=== PATIENT | male | born 1975 | race Caucasian/White ===

== ENCOUNTER 2017-07-28 19:51 | Emergency (ER) | payer OTHER ==
[2017-07-28] MEDS ORDERED: Albuterol/Ipratropium 3.0-0.5 MG/3 ML Neb Soln NEB ONE (20:21)
--- NOTE | 2017-07-28 20:21 | EDM.PDOC ---
ED HPI GENERAL MEDICAL PROBLEM - General Chief Complaint: Respiratory Problem Stated Complaint: short of breath for 1 month Time Seen by Provider: 07/28/17 20:00 Source of Information: Reports: Patient History Limitations: Reports: No Limitations - History of Present Illness INITIAL COMMENTS - FREE TEXT/NARRATIVE: patient comes in tonight with an onset of shortness of breath with exertion and coughing up a large amount of green thick sputum for the past and 3 weeks. Over the last week it has increased in intensity. The patient is unable to lie flat do to coughing up green phlegm, sweats, chills, muscle/body aches. Onset: Gradual Severity: Moderate Improves with: Reports: None Worsens with: Reports: Breathing Associated Symptoms: Reports: Cough, Fever/Chills, Nausea/Vomiting, Shortness of Breath - Related Data Allergies Allergy/AdvReac Type Severity Reaction Status Date / Time No Known Allergies Allergy Verified 07/28/17 19:54 Home Meds: Home Meds Azithromycin [IMW: Azithromycin] 500 mg PO DAILY 7 Days #7 tab 07/28/17 [Rx] Naproxen Sodium [Aleve] 2 tab PO DAILY 07/28/17 [History] Omeprazole 20 mg PO DAILY 07/28/17 [History] Past Medical History HEENT History: Reports: Impaired Vision Cardiovascular History: Reports: SOB on Exertion Gastrointestinal History: Reports: GERD Social & Family History - Tobacco Use Smoking Status *Q: Current Every Day Smoker Years of Tobacco use: 20 Packs/Tins Daily: 0.5 ED ROS GENERAL - Review of Systems Review Of Systems: See Below Constitutional: Reports: Fever, Chills, Malaise, Fatigue, Night Sweats HEENT: Reports: No Symptoms Respiratory: Reports: Shortness of Breath, Wheezing, Pleuritic Chest Pain, Cough , Sputum Cardiovascular: Reports: Dyspnea on Exertion. Denies: Chest Pain, Blood Pressure Problem, Claudication, Edema, Orthopnea, Syncope Endocrine: Reports: No Symptoms GI/Abdominal: Reports: No Symptoms : Reports: No Symptoms Musculoskeletal: Reports: No Symptoms Skin: Reports: No Symptoms Neurological: Reports: No Symptoms Psychiatric: Reports: No Symptoms Hematologic/Lymphatic: Reports: No Symptoms Immunologic: Reports: No Symptoms ED EXAM, GENERAL - Physical Exam Exam: See Below Exam Limited By: No Limitations General Appearance: Alert, WD/WN, No Apparent Distress Head: Atraumatic, Normocephalic Neck: Normal Inspection Respiratory/Chest: Decreased Breath Sounds, Wheezing Cardiovascular: Normal Peripheral Pulses, Regular Rate, Rhythm Back Exam: Normal Inspection, Full Range of Motion Extremities: Normal Inspection, Normal Range of Motion, Non-Tender, Normal Capillary Refill Neurological: Alert, Oriented, CN II-XII Intact, Normal Cognition Skin Exam: Warm, Dry, Intact, Normal Color, No Rash Course - Vital Signs Last Recorded V/S: Last Vital Signs Temp 37.1 C 07/28/17 19:55 Pulse 97 07/28/17 19:55 Resp 22 H 07/28/17 19:55 BP 144/78 H 07/28/17 19:55 Pulse Ox 97 07/28/17 19:55 - Orders/Labs/Meds Orders: Active Orders 24 hr Category Date Time Status Chest 2V [CR] Stat Exams 07/28/17 20:07 Ordered Departure - Departure Time of Disposition: 20:40 Disposition: Home, Self-Care 01 Condition: Good Clinical Impression: Pneumonia Qualifiers: Pneumonia type: due to unspecified organism Laterality: right Lung location: lower lobe of lung Qualified Code(s): J18.1 - Lobar pneumonia, unspecified organism - Discharge Information Instructions: Shortness of Breath, [id number], Community-Acquired Pneumonia, Adult, [id number] - My Orders Last 24 Hours: My Active Orders 07/28/17 20:07 Chest 2V [CR] Stat - Assessment/Plan Last 24 Hours: My Active Orders 07/28/17 20:07 Chest 2V [CR] Stat
[2017-07-28] MEDS ORDERED: cefTRIAXone 1 GM Vial IM ONE (20:23)
[2017-07-28 20:52] LABS: CHLORIDE,CL 105 mmol/L (98-107); SODIUM,NA 142 mmol/L (136-145)
== END 2017-07-28 20:53 | disposition home or self-care (01) ==
LOC: VM.ED 19:51
DX: J18.9 Pneumonia, unspecified organism (principal); F17.210 Nicotine dependence, cigarettes, uncomplicated; Z79.899 Other long term (current) drug therapy
CPT/HCPCS: 36415; 71020; 80053; 85027; 94640; 99285; J0696; 96372; 99283-GF

== ENCOUNTER 2017-11-06 11:27 | Observation (INO) | payer OTHER ==
--- NOTE | 2017-11-06 11:37 | EDM.PDOC ---
ED HPI GENERAL MEDICAL PROBLEM - General Chief Complaint: Chest Pain Stated Complaint: SOB; Chest Pain Time Seen by Provider: 11/06/17 11:35 Source of Information: Reports: Patient, RN, RN Notes Reviewed History Limitations: Reports: No Limitations - History of Present Illness INITIAL COMMENTS - FREE TEXT/NARRATIVE: Patient presents the emergency room at [facility] complaining of left substernal chest pain radiating down the left arm. The patient states that his left arm feels very tingly. The patient states that his symptoms began about one half hour prior to presentation to the emergency room. The patient denies any cardiac history. The patient denies any nausea vomiting or diarrhea. The patient denies any back pain. The patient denies any dizziness or headache. The patient denies any focal neurological deficit. The patient does feel short of breath. The patient states that he quit smoking about 3 weeks ago. The patient also has an anxiety component secondary to his chest pain. The patient states he has not had these symptoms in the past. The patient denies any recent cold or flu symptoms. Otherwise no other concerns. Onset: Today, Sudden Onset Date: 11/06/17 Onset Time: 11:00 Duration: Constant, Getting Worse Location: Reports: Chest Quality: Reports: Sharp, Stabbing Severity: Moderate Improves with: Reports: None Worsens with: Reports: None Context: Denies: Activity, Lifting, Trauma Associated Symptoms: Reports: Shortness of Breath Treatments LEGAL FILE CLERK: Reports: Other (see below) (none) Left Chest Pain Score (Numeric/FACES): 4 - Related Data Allergies Allergy/AdvReac Type Severity Reaction Status Date / Time onion Allergy Swelling Verified 11/06/17 12:02 Home Meds: Home Meds Naproxen Sodium [Aleve] 2 tab PO DAILY 07/28/17 [History] Omeprazole 20 mg PO BID 07/28/17 [History] Meloxicam [Meloxicam] 15 mg DAILY 11/06/17 [History] Past Medical History HEENT History: Reports: Impaired Vision Cardiovascular History: Reports: SOB on Exertion Gastrointestinal History: Reports: GERD Social & Family History - Tobacco Use Smoking Status *Q: Current Every Day Smoker Years of Tobacco use: 20 Packs/Tins Daily: 0.5 ED ROS GENERAL - Review of Systems Review Of Systems: See Below Constitutional: Denies: Fever, Chills, Weakness Respiratory: Reports: Shortness of Breath, Cough. Denies: Sputum Cardiovascular: Reports: Chest Pain, Dyspnea on Exertion. Denies: Palpitations GI/Abdominal: Denies: Abdominal Pain, Nausea, Vomiting Musculoskeletal: Reports: No Symptoms Skin: Reports: No Symptoms Neurological: Reports: Tingling (down left arm). Denies: Dizziness, Headache, Numbness, Paresthesia ED EXAM, GENERAL - Physical Exam Exam: See Below Exam Limited By: No Limitations General Appearance: Alert, No Apparent Distress, Obese Respiratory/Chest: Decreased Breath Sounds, Rhonchi, Wheezing (end expiratory) Cardiovascular: Normal Peripheral Pulses, Regular Rate, Rhythm Peripheral Pulses: 2+: Radial (L), Radial (R) GI/Abdominal: Soft, Non-Tender, Abnormal Bowel Sounds (Hypoactive) Back Exam: Normal Inspection Extremities: Normal Inspection Neurological: Alert, Oriented Skin Exam: Warm, Dry, Intact, Normal Color, No Rash EKG INTERPRETATION EKG Date: 11/06/17 Time: 11:35 Rhythm: NSR Rate (Beats/Min): 87 [place]: Normal P-Wave: Present QRS: Normal ST-T: Depressed QT: Normal IL/PQ Interval: 0.17 Comparison: NA - No Prior EKG EKG Interpretation Comments: EKG #1: 1. Sinus Rhythm 2. Moderate ST depression EKG #2: 1. Sinus Rhythm 2. Normal ECG Course - Vital Signs Last Recorded V/S: Last Vital Signs Temp 36.9 C 11/06/17 13:50 Pulse 78 11/06/17 13:50 Resp 28 H 11/06/17 13:50 BP 135/71 11/06/17 13:50 Pulse Ox 97 11/06/17 13:50 - Orders/Labs/Meds Orders: Active Orders 24 hr Category Date Time Status EKG 12 Lead [EKG Documentation Completion] [RC] STAT Care 11/06/17 13:14 Active EKG 12 Lead [EKG Documentation Completion] [RC] STAT Care 11/06/17 13:15 Active Chest 1V Frontal [CR] Stat Exams 11/06/17 11:37 Taken Chest w Cont [CT] Stat Exams 11/06/17 13:00 Taken Sodium Chloride 0.9% [Saline Flush] Med 11/06/17 11:38 Active 10 ml FLUSH ASDIRECTED PRN Peripheral IV Insertion Adult [OM.PC] Routine Oth 11/06/17 11:38 Ordered Medication Orders Sodium Chloride (Saline Flush) 10 ml FLUSH ASDIRECTED PRN PRN Reason: Keep Vein Open Labs: Laboratory Tests 11/06/17 11/06/17 11/06/17 Range/Units 11:54 11:54 11:55 WBC 9.1 (4.0-10.0) x10^3/uL RBC 4.32 L (4.5-6.0) x10^6/uL Hgb 14.6 (14.0-18.0) g/dL Hct 42.1 (40.0-52.0) % MCV 97.5 H (78.0-93.0) fL MCH 33.8 H (26.0-32.0) pg MCHC 34.7 (32.0-36.0) g/dL RDW Coeff of Dinesh 12.0 (10.0-15.0) % Plt Count 144 (130-400) x10^3/uL Neut % (Auto) 59.6 (50.0-80.0) % Lymph % (Auto) 32.2 (25.0-50.0) % [place] % (Auto) 6.8 (2.0-11.0) % Eos % (Auto) 1.1 (0.0-4.0) % Baso % (Auto) 0.3 (0.2-1.2) % PT (9.8-11.8) SEC INR (2.0-3.5) D-Dimer, Quantitative 0.21 (<=0.58) mg/LFEU Sodium 140 (136-145) mmol/L Potassium 4.0 (3.5-5.1) mmol/L Chloride 105 (98-107) mmol/L Carbon Dioxide 22 (21-32) mmol/L BUN 17 (7-18) mg/dL Creatinine 1.0 (0.70-1.30) mg/dL Est Cr Clr Drug Dosing 106.70 mL/min Estimated GFR (MDRD) > 60 Glucose 107 H (74-106) mg/dL Calcium 8.9 (8.5-10.1) mg/dL Corrected Calcium 9.06 (8.5-10.1) mg/dL Magnesium 1.8 (1.8-2.4) mg/dL Total Bilirubin 0.7 (0.2-1.0) mg/dL AST 43 H (15-37) U/L ALT 130 H (16-63) U/L Alkaline Phosphatase 102 (46-116) U/L Creatine Kinase 164 (39-308) U/L Creatine Kinase Index 0.7 (0.0-4.0) % CK-MB (CK-2) 1.2 (0.0-3.6) ng/mL POC Troponin I (0.00-0.08) ng/mL Total Protein 7.4 (6.4-8.2) g/dL Albumin 3.8 (3.4-5.0) g/dL Globulin 3.6 Albumin/Globulin Ratio 1.06 11/06/17 11/06/17 Range/Units 11:55 11:58 WBC (4.0-10.0) x10^3/uL RBC (4.5-6.0) x10^6/uL Hgb (14.0-18.0) g/dL Hct (40.0-52.0) % MCV (78.0-93.0) fL MCH (26.0-32.0) pg MCHC (32.0-36.0) g/dL RDW Coeff of Dinesh (10.0-15.0) % Plt Count (130-400) x10^3/uL Neut % (Auto) (50.0-80.0) % Lymph % (Auto) (25.0-50.0) % [place] % (Auto) (2.0-11.0) % Eos % (Auto) (0.0-4.0) % Baso % (Auto) (0.2-1.2) % PT 9.7 L (9.8-11.8) SEC INR 0.9 L (2.0-3.5) D-Dimer, Quantitative (<=0.58) mg/LFEU Sodium (136-145) mmol/L Potassium (3.5-5.1) mmol/L Chloride (98-107) mmol/L Carbon Dioxide (21-32) mmol/L BUN (7-18) mg/dL Creatinine (0.70-1.30) mg/dL Est Cr Clr Drug Dosing mL/min Estimated GFR (MDRD) Glucose (74-106) mg/dL Calcium (8.5-10.1) mg/dL Corrected Calcium (8.5-10.1) mg/dL Magnesium (1.8-2.4) mg/dL Total Bilirubin (0.2-1.0) mg/dL AST (15-37) U/L ALT (16-63) U/L Alkaline Phosphatase (46-116) U/L Creatine Kinase (39-308) U/L Creatine Kinase Index (0.0-4.0) % CK-MB (CK-2) (0.0-3.6) ng/mL POC Troponin I 0.00 (0.00-0.08) ng/mL Total Protein (6.4-8.2) g/dL Albumin (3.4-5.0) g/dL Globulin Albumin/Globulin Ratio Meds: Medications Generic Name Dose Route Start Last Admin Trade Name Freq PRN Reason Stop Dose Admin Sodium Chloride 10 ml 11/06/17 11:38 Saline Flush FLUSH ASDIRECTED PRN Keep Vein Open Discontinued Medications Generic Name Dose Route Start Last Admin Trade Name Freq PRN Reason Stop Dose Admin Aspirin 324 mg 11/06/17 11:43 11/06/17 11:48 Aspirin PO 11/06/17 11:44 324 mg ONETIME ONE Administration Iopamidol 100 ml 11/06/17 13:05 11/06/17 13:19 Isovue-300 (61%) IVPUSH 11/06/17 13:06 100 ml ONETIME ONE Administration Nitroglycerin 0.4 mg 11/06/17 11:39 11/06/17 11:50 Nitrostat SL 11/06/17 11:40 0.4 mg ONETIME ONE Administration Nitroglycerin 0.4 mg 11/06/17 13:12 11/06/17 12:00 Nitrostat SL 11/06/17 13:13 0.4 mg ONETIME ONE Administration - Radiology Interpretation Free Text/Narrative:: CXR: No acute findings CT Chest w/contrast: No gross evidence of pulmonary embolism. Geographic area of increased density in the left hepatic lobe superimposed on a background of severe steatosis. Consider further evaluation with either hepatic US or MRI See scanned report in EMR CT Results Date: 11/06/17 CT Results Time: 13:45 Departure - Departure Time of Disposition: 13:55 Disposition: Refer to Observation Reason for Transfer *Q: Other Condition: Good Clinical Impression: Chest pain Qualifiers: Chest pain type: unspecified Qualified Code(s): R07.9 - Chest pain, unspecified - Problem List & Annotations (1) Chest pain SNOMED Code(s): 50682414 Code(s): R07.9 - CHEST PAIN, UNSPECIFIED Status: Acute Priority: High Current Visit: Yes Onset Date: ~11/06/17 Qualifiers: Chest pain type: unspecified Qualified Code(s): R07.9 - Chest pain, unspecified - Problem List Review Problem List Initiated/Reviewed/Updated: Yes - My Orders Last 24 Hours: My Active Orders 11/06/17 11:37 Chest 1V Frontal [CR] Stat 11/06/17 11:38 Sodium Chloride 0.9% [Saline Flush] 10 ml FLUSH ASDIRECTED PRN Peripheral IV Insertion Adult [OM.PC] Routine 11/06/17 13:00 Chest w Cont [CT] Stat 11/06/17 13:14 EKG 12 Lead [EKG Documentation Completion] [RC] STAT 11/06/17 13:15 EKG 12 Lead [EKG Documentation Completion] [RC] STAT - Assessment/Plan Last 24 Hours: My Active Orders 11/06/17 11:37 Chest 1V Frontal [CR] Stat 11/06/17 11:38 Sodium Chloride 0.9% [Saline Flush] 10 ml FLUSH ASDIRECTED PRN Peripheral IV Insertion Adult [OM.PC] Routine 11/06/17 13:00 Chest w Cont [CT] Stat 11/06/17 13:14 EKG 12 Lead [EKG Documentation Completion] [RC] STAT 11/06/17 13:15 EKG 12 Lead [EKG Documentation Completion] [RC] STAT Plan: Case was discussed with cardiology from [facility] in [place]. No acute cardiac problems identified on EKG and laboratory work. It is recommended that the patient have a stress test given his history. The patient will be admitted to the observation unit at [facility] for serial cardiac enzyme monitoring as well as EKGs. The patient will be scheduled for a exercise stress test tomorrow morning at [facility]. We will also work up the patient's liver problems. I did speak with Odin at the [facility] in [place] who states they do not have a bed for this patient, therefore he'll be admitted to this facility. Patient agrees with the admission and wishes to proceed.
[2017-11-06] MEDS ORDERED: Sodium Chloride 0.9% 10 ML Syringe FLUSH PRN (11:38)
[2017-11-06] MEDS ORDERED: Nitroglycerin 0.4 MG Tab.SL SL ONE ×2 (11:39→13:12)
[2017-11-06] MEDS ORDERED: Aspirin 81 MG Tab.Chew PO ONE (11:43)
[2017-11-06 12:33] LABS: CHLORIDE,CL 105 mmol/L (98-107); SODIUM,NA 140 mmol/L (136-145)
[2017-11-06] MEDS ORDERED: Iopamidol 612 MG/ML 100 ML Bottle IVPUSH ONE (13:05)
[2017-11-06] MEDS ORDERED: Morphine 4 MG/ML Syringe IVPUSH PRN (15:07)
[2017-11-06] MEDS ORDERED: Ondansetron 4 MG Tab.DIS PO PRN (15:07)
[2017-11-06] MEDS ORDERED: LORazepam 2 MG/ML MDV IV PRN (15:07)
[2017-11-06] MEDS ORDERED: Nitroglycerin 0.4 MG Tab.SL SL PRN (15:07)
--- NOTE | 2017-11-06 17:28 | PCM.HP ---
H&P History of Present Illness - General Date of Service: 11/06/17 Admit Problem/Dx: Admission Diagnosis/Problem Admission Diagnosis/Problem Chest pain R/O NE NAFLD GERD Elevated Liver Enzymes Obesity Source of Information: Patient, RN, RN Notes Reviewed History Limitations: Reports: No Limitations - History of Present Illness Initial Comments - Free Text/Narative: This 41-year-old male patient presented to the emergency room at [facility] earlier today around 11:30 AM complaining of substernal left chest pain with radiation down the left arm. The patient stated that his left arm felt very tingly as well. The patient does not have any cardiac history, although he is at high risk with morbid obesity and cigarette smoking. The patient states at the time the chest pain started, he was getting into his vehicle. The patient states he became somewhat short of breath and felt very anxious. The patient does smoke cigarettes on a daily basis. The patient does have somewhat of a sedentary life with his job as he does travel a lot. The patient did not have any focal neurological deficits. The patient denied any abdominal pain. No nausea vomiting or diarrhea. The patient's only past medical history is KRISTEN, arthritis, and GERD. The patient has been taking significant amounts of meloxicam and Aleve for his arthritic pain. The patient states that he consumes alcohol only on a social basis. The patient does not use any recreational drugs. The patient's blood pressure was elevated in the 140s over the 80s in the emergency room. After the 2 nitroglycerin the patient's blood pressure only went down to the 130s over the 80s. During the patient's ER visit, he was given nitroglycerin and aspirin. The patient states that his chest pain got somewhat better with the nitroglycerin but it did give him a significant headache. The EKGs and laboratory work were discussed with the church worker from [facility] in [place]. Cardiology did not think the patient had any active NE but did recommend observation for monitoring of serial enzymes and EKGs. The patient's CT of his chest with contrast did not reveal any pulmonary problems, however incidental finding of fatty liver disease was seen. Onset of Symptoms: Reports: Today, Sudden Symptom Onset Date: 11/06/17 Symptom Onset Time: 11:00 Duration of Symptoms: Reports: Waxing/Waning Location: Reports: Chest Quality: Reports: Pressure Severity: Moderate Improves with: Reports: None Worsens with: Reports: None Context: Denies: Lifting, Exertion, Trauma Associated Symptoms: Reports: No Other Symptoms Left Chest Pain Score (Numeric/FACES): 4 - Related Data Allergies/Adverse Reactions: Allergies Allergy/AdvReac Type Severity Reaction Status Date / Time onion Allergy Swelling Verified 11/06/17 12:02 Home Medications: Home Meds Naproxen Sodium [Aleve] 2 tab PO DAILY 07/28/17 [History] Omeprazole 20 mg PO BID 07/28/17 [History] Meloxicam [Meloxicam] 15 mg DAILY 11/06/17 [History] Past Medical History HEENT History: Reports: Impaired Vision Cardiovascular History: Reports: SOB on Exertion Respiratory History: Reports: Sleep Apnea Gastrointestinal History: Reports: GERD Musculoskeletal History: Reports: Arthritis - Infectious Disease History Infectious Disease History: Reports: Chicken Pox, Shingles - Past Surgical History HEENT Surgical History: Reports: Eye Surgery, Laser Surgery Male Surgical History: Reports: Vasectomy, Other (See Below) Other Male Surgeries/Procedures: pilonidal cysts Social & Family History - Family History Cardiac: Reports: Aneurysm, NE, Prior Cardiac Arrest Musculoskeletal: Reports: Arthritis, Gout Neurological: Reports: CVA Endocrine/Metabolic: Reports: Diabetes, Type I, Obesity/MBI 30+ - Tobacco Use Smoking Status *Q: Current Every Day Smoker Years of Tobacco use: 20 Packs/Tins Daily: 0.5 Used Tobacco, but Quit: Yes Month Tobacco Last Used: October Second Hand Smoke Exposure: No - Caffeine Use Caffeine Use: Reports: Coffee, Soda - Alcohol Use Alcohol Use History: Yes Date of Last Drink: 11/05/17 - Recreational Drug Use Recreational Drug Use: No H&P Review of Systems - Review of Systems: Review Of Systems: See Below General: Denies: Fever, Chills, Weakness Pulmonary: Reports: Shortness of Breath. Denies: Cough Cardiovascular: Reports: Chest Pain, Dyspnea on Exertion. Denies: Palpitations Gastrointestinal: Denies: Abdominal Pain, Nausea, Vomiting Skin: Reports: No Symptoms Neurological: Reports: No Symptoms. Denies: Dizziness, Headache (Tingling of left arm has resolved) Exam - Exam Exam: See Below - Vital Signs Vital Signs: Last Vital Signs Temp 36.9 C 11/06/17 13:50 Pulse 78 11/06/17 13:50 Resp 28 H 11/06/17 13:50 BP 135/71 11/06/17 13:50 Pulse Ox 97 11/06/17 13:50 Weight: 148.96 kg - Exam General: Alert, Oriented Lungs: Decreased Breath Sounds Cardiovascular: Regular Rate, Regular Rhythm, Normal S1, Normal S2 GI/Abdominal Exam: Normal Bowel Sounds, Soft, Non-Tender Extremities: Normal Inspection Peripheral Pulses: 2+: Radial (L), Radial (R) Skin: Warm, Dry, Intact Neuro Extensive - Mental Status: Alert, Oriented x3 - Patient Data Lab Results Last 24 hrs: Laboratory Results - last 24 hr 11/06/17 Range/Units 15:51 Creatine Kinase 153 (39-308) U/L Creatine Kinase Index 0.7 (0.0-4.0) % CK-MB (CK-2) 1.0 (0.0-3.6) ng/mL Troponin I < 0.017 (<=0.056) ng/mL Result Diagrams: 11/06/17 11:54 11/06/17 11:54 *Q Meaningful Use (ADM) - VTE *Q VTE Criteria *Q: No fall risk - Stroke *Q Stroke Criteria *Q: - AMI *Q AMI Criteria *Q: - Problem List (1) Chest pain SNOMED Code(s): 10347699 ICD Code: R07.9 - CHEST PAIN, UNSPECIFIED Status: Acute Priority: High Current Visit: Yes Onset Date: ~11/06/17 Qualifiers: Chest pain type: unspecified Qualified Code(s): R07.9 - Chest pain, unspecified (2) Elevated liver enzymes SNOMED Code(s): 000154778 ICD Code: R74.8 - ABNORMAL LEVELS OF OTHER SERUM ENZYMES Status: Acute Priority: Medium Current Visit: Yes (3) Nonalcoholic fatty liver disease SNOMED Code(s): 631507260 ICD Code: K76.0 - FATTY (CHANGE OF) LIVER, NOT ELSEWHERE CLASSIFIED Status : Acute Priority: Medium Current Visit: Yes (4) GERD (gastroesophageal reflux disease) SNOMED Code(s): 325462182 ICD Code: K21.9 - GASTRO-ESOPHAGEAL REFLUX DISEASE WITHOUT ESOPHAGITIS Status: Chronic Priority: Medium Current Visit: No Qualifiers: Esophagitis presence: without esophagitis Qualified Code(s): K21.9 - Gastro -esophageal reflux disease without esophagitis (5) Arthritis SNOMED Code(s): 2708392 ICD Code: M19.90 - UNSPECIFIED OSTEOARTHRITIS, UNSPECIFIED SITE Status: Chronic Priority: Low Current Visit: No (6) KRISTEN on CPAP SNOMED Code(s): 43161441 ICD Code: G47.33 - OBSTRUCTIVE SLEEP APNEA (ADULT) (PEDIATRIC); Z99.89 - DEPENDENCE ON OTHER ENABLING MACHINES AND DEVICES Status: Chronic Priority: Medium Current Visit: Yes (7) Essential hypertension SNOMED Code(s): 43248795 ICD Code: I10 - ESSENTIAL (PRIMARY) HYPERTENSION Status: Chronic Priority : Medium Current Visit: Yes (8) Obesity due to excess calories SNOMED Code(s): 286493902 ICD Code: E66.09 - OTHER OBESITY DUE TO EXCESS CALORIES Status: Acute Current Visit: Yes Qualifiers: Obesity classification: adult class 3 (BMI >= 40) Serious obesity comorbidity presence: without serious comorbidity Body mass index: BMI 40.0- 44.9 Qualified Code(s): E66.01 - Morbid (severe) obesity due to excess calories; Z68.41 - Body mass index (BMI) 40.0-44.9, adult; Z68.41 - Body mass index (BMI) 40.0-44.9, adult; Z68.41 - Body mass index (BMI) 40.0-44.9, adult; Z68.41 - Body mass index (BMI) 40.0-44.9, adult Problem List Initiated/Reviewed/Updated: Yes Orders Last 24hrs: Active Orders 24 hr Category Date Time Status Patient Status [ADT] Routine ADT 11/06/17 15:16 Active Ambulate [RC] Care 11/06/17 15:16 Active Cardiac Education [RC] Click to Edit Care 11/06/17 15:07 Active Cardiac Monitoring [RC] . DIRECTED Care 11/06/17 15:07 Active EKG 12 Lead [EKG Documentation Completion] [RC] ROUTINE Care 11/07/17 07:00 Active Intake and Output [RC] Care 11/06/17 15:17 Active May Shower [RC] Care 11/06/17 15:16 Active Oxygen Therapy [RC] ASDIRECTED Care 11/06/17 15:07 Inactive Oxygen Therapy [RC] PRN Care 11/06/17 15:16 Active Smoking Cessation Education [RC] DAILY Care 11/06/17 16:05 Active Vital Signs [RC] 06,10,14,18,22,02 Care 11/06/17 15:16 Active Consult to Case Management [CONS] Routine Cons 11/06/17 15:16 Active 2 Gram Sodium Diet [DIET] Diet 11/06/17 Breakfast Active Cardiolite Stress Test [Myocardial Perf Spect Multi] [ Exams 11/07/17 09:30 Ordered NM] Routine BASIC METABOLIC PANEL,BMP [CHEM] Routine Lab 11/07/17 05:11 Ordered CBC WITH AUTO DIFF [HEME] Routine Lab 11/07/17 05:11 Ordered CK W CKMB [CHEM] Routine Lab 11/06/17 18:00 Ordered CK W CKMB [CHEM] Routine Lab 11/07/17 05:11 Ordered FERRITIN [CHEM] Routine Lab 11/07/17 05:11 Ordered HEPATITIS PANEL, ACUTE [REF] Routine Lab 11/07/17 05:11 Ordered IRON/TIBC [CHEM] Routine Lab 11/07/17 05:11 Ordered MAGNESIUM [CHEM] Routine Lab 11/07/17 05:11 Ordered TROPONIN I [CHEM] Routine Lab 11/06/17 18:00 Ordered TROPONIN I [CHEM] Routine Lab 11/07/17 05:11 Ordered Acetaminophen [Tylenol] Med 11/06/17 15:16 Active 650 mg PO Q4H PRN Aspirin [Halfprin] Med 11/07/17 08:00 Active 81 mg PO DAILY LORazepam [Ativan] Med 11/06/17 15:07 Active 1 mg IV Q6H PRN Metoprolol Tartrate [Lopressor] Med 11/06/17 20:00 Active 25 mg PO Q12HR Morphine Med 11/06/17 15:07 Active 4 mg IVPUSH Q10M PRN Nitroglycerin [Nitrostat] Med 11/06/17 15:07 Active 0.4 mg SL Q5M PRN Omeprazole Med 11/06/17 17:00 Active 20 mg PO BIDAC Ondansetron [Zofran ODT] Med 11/06/17 15:07 Active 4 mg PO Q6H PRN Resuscitation Status Routine Resus Stat 11/06/17 15:16 Ordered Medication Orders Acetaminophen (Tylenol) 650 mg PO Q4H PRN PRN Reason: Pain (Mild 1-3)/fever Aspirin (Halfprin) 81 mg PO DAILY NILSON Lorazepam (Ativan) 1 mg IV Q6H PRN PRN Reason: Anxiety Metoprolol Tartrate (Lopressor) 25 mg PO Q12HR NILSON Morphine Sulfate (Morphine) 4 mg IVPUSH Q10M PRN PRN Reason: Chest Pain Stop: 11/07/17 15:09 Nitroglycerin (Nitrostat) 0.4 mg SL Q5M PRN PRN Reason: Chest Pain Stop: 11/07/17 15:08 Omeprazole (Omeprazole) 20 mg PO BIDAC NILSON Ondansetron HCl (Zofran Odt) 4 mg PO Q6H PRN PRN Reason: Nausea/Vomiting Sodium Chloride (Saline Flush) 10 ml FLUSH ASDIRECTED PRN PRN Reason: Keep Vein Open Assessment/Plan Comment:: 41-year-old male patient with a past medical history of obstructive sleep apnea , arthritis, gastroesophageal reflux disease, and KRISTEN is being admitted to the observation unit at [facility] with a diagnosis of chest pain rule out NE, non-alcoholic fatty liver disease, and elevated liver enzymes. The patient will be started on IV fluids for gentle hydration. We will check serial cardiac enzymes and EKGs. If these remain negative, there is a possibility the patient could be discharged home tomorrow. In regards to the patient's nonalcoholic fatty liver disease which is a new diagnosis for this patient, we will do a complete liver workup with lab work. The patient will need a outpatient ultrasound of his liver for further evaluation. I am going to hold the patient' s meloxicam and naproxen until further investigation of the liver is conducted. The patient was hypertensive on admission therefore I will start the patient on metoprolol 25 mg by mouth twice a day. Chest pain orders are in place. The patient is a full code 1. The patient does wish to be transferred to a higher level of care should the need arise. DVT prophylaxis will be early ambulation. The patient will be scheduled for a Cardiolite exercise stress test tomorrow morning with Dr. Daisha Maxwell. If the stress test is negative, the patient will be able to be discharged and follow-up with his primary this week for further evaluation of his nonalcoholic fatty liver disease. The patient does follow with Dr. Alison Mccarthy at the [facility] in [facility]. We will obtain old records from Dr. Mccarthy's office. The patient's HERNANDEZ score is 0.33 with a AST/ALT ratio of <1, therefore the patient has a <4% chance of hepatic fibrosis. We will recheck liver enzymes in the morning. We'll also check a ferritin, hepatitis panel, iron panel, D-Bili, and Lipids. We have asked the patient's to bring in the patient's home CPAP machine for his KRISTEN. We'll continue the patient on omeprazole for his GERD. The patient's case was discussed with Odin, hospital medical record administrator from the DC in [place]. The [facility] in [place] does not have any bed availability, therefore the patient is admitted here. The patient's Cardiolite exercise stress test has also been approved by the [facility] in [place] according to Odin.
[2017-11-06] MEDS ORDERED: Metoprolol Tartrate 25 MG Tab PO SCH (18:00)
[2017-11-06] MEDS: Omeprazole 20 MG Cap.CR PO SCH (18:11)
[2017-11-06] MEDS: Metoprolol Tartrate 25 MG Tab PO SCH (20:37)
[2017-11-07] MEDS: Omeprazole 20 MG Cap.CR PO SCH (06:03)
[2017-11-07] MEDS: Acetaminophen 325 MG Tab PO PRN ×2 (07:37→12:55)
[2017-11-07] MEDS: Metoprolol Tartrate 25 MG Tab PO SCH (07:37)
[2017-11-07] MEDS ORDERED: Aspirin 81 MG Tab.EC PO SCH (08:00)
[2017-11-07 08:04] LABS: CHLORIDE,CL 105 mmol/L (98-107); SODIUM,NA 139 mmol/L (136-145)
--- NOTE | 2017-11-07 12:18 | PCM.SN ---
- Free Text/Narrative Note: 41yr male risk factors of smoking (quit 3 weeks ago), obesity, family hx of early CAD with father having angina at age 45. Indication for stress test is chest pain and left arm numbness. The patient was exercised according to a Dom protocol with 3 minutes per stage. Resting heart rate was 87, resting blood pressure was 130/74 . walked a total of minutes 5:56 attaining a MET level of 7. The test was terminated because of chest pain and patient was getting tired having a difficult time keeping up with the treadmill and the next stage was about to start. Maximum blood pressure reached was 152/61, maximum heart rate was 132 which is 74 % of the age adjusted maximum heart rate. Double product was 18,392 Patient was given a beta nia. Arun Lyon had symptoms of chest pain and left arm numbness during their exam. Pain was a 3 of 10 prior went up to a 6.5 yesterday it was an 8, pain improved back to a 3 prior to the completion of monitoring. Resting EKG showed NSR, normal axis, t wave inversion in II, III, and aVF. No ST depression or elevation was seen during his exam. Arrhythmia(s) were not seen. Findings- Poor exercise tolerance he was also limited by some groin and back pain He was about 55 % of an active adult for his age. 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 Inadequate stress level No ST changes No arrhythmia seen [place] Treadmill score -2 or moderate risk Nondiagnostic test for EKG changes of ischemia because his target was not achieved. Recommendations were made to follow up with his PCP in [place] or the [place]. I would continue an ASA 81 mg daily, consider a statin and continue the beta nia while undergoing further work up if needed to manage blood pressures. His troponin's were negative x 3 and he also had a negative chest CT for PE. He had a stress test through the [employer] in 2005 and reports he had to have a second test with medications. He had pericarditis possibly at that time but currently he has no EKG changes to suggest that. Pain was reported to be worsened by movement so it is possibly musculoskeletal. He should continue to avoid smoking. He had a low HDL at 37, ldl 86 total 180 and triglycerides 287. BS 127 this AM fasting he potentially has prediabetes. Report given to ER provider Doc Caicedo who is caring for the patient.
== END 2017-11-07 15:05 | disposition home or self-care (01) ==
LOC: VM.ED 11:27 → VM.MS 13:33
PROVIDERS: ADMIT Nurse Practitioner Family; ATTEND Nurse Practitioner Family
DX: R07.2 Precordial pain (principal); K76.0 Fatty (change of) liver, not elsewhere classified; K21.9 Gastro-esophageal reflux disease without esophagitis; F17.210 Nicotine dependence, cigarettes, uncomplicated; E66.01 Morbid (severe) obesity due to excess calories; G47.33 Obstructive sleep apnea (adult) (pediatric); M19.90 Unspecified osteoarthritis, unspecified site; M10.9 Gout, unspecified; E10.9 Type 1 diabetes mellitus without complications; R74.8 Abnormal levels of other serum enzymes; I10 Essential (primary) hypertension; Z68.41 Body mass index [BMI] 40.0-44.9, adult; Z79.899 Other long term (current) drug therapy; Z98.52 Vasectomy status; Z99.89 Dependence on other enabling machines and devices; Z91.018 Allergy to other foods
CPT/HCPCS: 36415; 71045; 71260; 80048; 80053; 80061; 80074; 82248; 82550; 82553; 82728; 83540; 83550; 83735; 84484; 85025; 85379; 85610; 93005; 93017; 96374; 99285; A9270-GY; G0378; J2060; Q9967